=== PATIENT | male | born 1985 ===

== ENCOUNTER 2017-06-24 15:59 | Emergency (ER) | payer MEDICAID, OTHER ==
--- NOTE | 2017-06-24 17:20 | ED PDOC ---
HPI: General Adult Time Seen by Provider: 06/24/17 17:05 Chief Complaint (Nursing): Flu-like Symptoms Chief Complaint (Provider): Flu-like Symptoms History Per: Patient, Photovoltaic Installation Technician (Patient's girlfriend at bedside is translating for patient in Lao) History/Exam Limitations: no limitations Onset/Duration Of Symptoms: Days (x1) Current Symptoms Are (Timing): Still Present Additional Complaint(s): Donnie Schmitz is a 32 year old male that presents to the ED with a chief complaint of subjective fever, sore throat, and body aches x1 day. Patient denies cough and states that he last took Tylenol at 5 AM this morning. Past Medical History Reviewed: Historical Data, Nursing Documentation, Vital Signs Vital Signs: Last Vital Signs Temp 99.3 F 06/24/17 17:37 Pulse 86 06/24/17 16:50 Resp 16 06/24/17 16:50 BP 146/90 06/24/17 16:50 Pulse Ox 100 06/24/17 17:22 - Medical History PMH: No Chronic Diseases - Family History Family History: States: Unknown Family Hx - Home Medications Home Medications: Ambulatory Orders Medication Instructions Recorded Acetaminophen/Hydrocodone Bi 1 tab PO QID PRN #10 tab 11/13/14 [Vicodin 300 mg-5 mg] Acetaminophen [Tylenol 325mg tab] 650 mg PO Q4 PRN #1 bottle 06/24/17 Amoxicillin 875 mg PO BID #14 tab 06/24/17 Ibuprofen [Motrin] 600 mg PO Q6 PRN #15 tab 06/24/17 Oseltamivir Phosphate [Tamiflu] 75 mg PO BID #10 capsule 06/24/17 - Allergies Allergies/Adverse Reactions: Allergies Allergy/AdvReac Type Severity Reaction Status Date / Time No Known Allergies Allergy Verified 11/13/14 09:24 Review of Systems ROS Statement: Except As Marked, All Systems Reviewed And Found Negative Constitutional: Positive for: Fever, Other (diffuse body aches) ENT: Positive for: Throat Pain Respiratory: Negative for: Cough Physical Exam - Reviewed Nursing Documentation Reviewed: Yes Vital Signs Reviewed: Yes - Physical Exam Appears: Positive for: Non-toxic, No Acute Distress Head Exam: Positive for: ATRAUMATIC, NORMOCEPHALIC Skin: Positive for: Normal Color, Warm Eye Exam: Positive for: Normal appearance, EOMI, PERRL ENT: Positive for: Tonsillar Exudate (b/l), Tonsillar Swelling (b/l). Negative for: Normal ENT Inspection Cardiovascular/Chest: Positive for: Regular Rate, Rhythm. Negative for: Murmur Respiratory: Positive for: Normal Breath Sounds. Negative for: Wheezing Lymphatic: Positive for: Adenopathy (b/l anterior cervical lymph adenopathy). Negative for: Normal Exam Neurologic/Psych: Positive for: Alert, Oriented. Negative for: Motor/Sensory Deficits - ECG O2 Sat by Pulse Oximetry: 100 (RA) Pulse Ox Interpretation: Normal Medical Decision Making Medical Decision Making: Impression: 32 year old male with possible throat infection Plan: * Tylenol 975 mg PO * Ibuprofen 600 mg PO * Rapid Strep * Reevaluation Rapid strep negative. Patient treated with Tamiflu and amoxicillin. Prescriptions also given for Tylenol and Motrin for fever control. Advised fluids, rest and follow-up with primary doctor or clinic Scribe Attestation: Documented by Flaca Beatty, acting as a scribe for Sherlyn Can PA-C. Provider Scribe Attestation: All medical record entries made by the Scribe were at my direction and personally dictated by me. I have reviewed the chart and agree that the record accurately reflects my personal performance of the history, physical exam, medical decision making, and the department course for this patient. I have also personally directed, reviewed, and agree with the discharge instructions and disposition. Disposition - Clinical Impression Clinical Impression: Pharyngitis, Influenza-like symptoms - Patient ED Disposition Is Patient to be Admitted: No Counseled Patient/Family Regarding: Studies Performed, Diagnosis, Need For Followup, Rx Given - Disposition Referrals: [facility] [Outside] Disposition: Routine/Home Disposition Time: 18:29 Condition: STABLE Additional Instructions: Take prescription medications as directed. Rest and drink plenty of fluids. Follow-up with primary doctor or clinic in 2-3 days. Prescriptions: Acetaminophen [Tylenol 325mg tab] 650 mg PO Q4 PRN #1 bottle PRN Reason: Fever >100.4 F Amoxicillin 875 mg PO BID #14 tab Ibuprofen [Motrin] 600 mg PO Q6 PRN #15 tab PRN Reason: Fever >100.4 F Oseltamivir Phosphate [Tamiflu] 75 mg PO BID #10 capsule Instructions: Sore Throat in Adults, Viral Upper Respiratory Infection, Adult ( [place]) Forms: [place] ([place]o), [facility] ED School/Work Excuse Print Language: AZERI
[2017-06-24 18:40] VITALS: BP 131/78; PULSE 89; RESP 15; TEMP 98.9; O2SAT 99
== END 2017-06-24 18:41 | disposition home or self-care (01) ==
LOC: H.ER 15:59
DX: J02.0 Streptococcal pharyngitis (principal); J11.1 Influenza due to unidentified influenza virus with other respiratory manifestations